=== PATIENT | female | born 1960 | race Caucasian/White ===

== ENCOUNTER 2016-09-12 04:12 | Observation (INO) ==
[2016-09-12 04:56] LABS: MANUAL DIFF NEEDED? NO
[2016-09-12 05:01] LABS: BASO% 0.1 % (0.0-0.8); HEMATOCRIT 41.1 % (37.0-47.0); LYMPH# 0.71 X1000 (1.2-3.4); LYMPH% 10.4 % (20.5-51.1); MCH 32.3 PG (27-31); MCHC 34.1 g/dL (33-37); MCV 94.7 FL (81-99); MONO# 0.48 X1000 (0.11-0.59); MPV 9.4 FL (7.4-10.4); NEUT% 82.5 % (42.2-75.2); PLT 158 X1000 (130-400); RBC 4.34 XMIL (4.2-5.4)
[2016-09-12 05:17] LABS: ALBUMIN 4.2 g/dL (3.5-5.0); CALCIUM 8.9 mg/dL (8.8-10.2); POTASSIUM 3.8 mmol/L (3.5-5.1); TOTAL BILIRUBIN 0.38 mg/dL (0.20-1.00); TOTAL PROTEIN 7.1 g/dL (6.3-8.3)
[2016-09-12] MEDS ORDERED: NS 1,000 ML IV ONE (06:47)
--- NOTE | 2016-09-12 07:17 | PROVIDER DOCUMENTATION ---
HPI-General Adult - General Chief Complaint: Flu Symptoms Stated Complaint: FEVER/SEIZURES/PASSED OUT Time Seen by Provider: 09/12/16 06:30 Source: patient, family Allergies/Adverse Reactions: Patient Allergies Allergy/AdvReac Type Severity Reaction Status Date / Time codeine Allergy RASH Verified 09/12/16 04:34 Home Medications: Home Medication List Medication Instructions Recorded Confirmed Last Taken Type Venlafaxine [Effexor] 75 mg PO DAILY 09/12/16 09/12/16 09/11/16 History - History of Present Illness -Gen Adult Nature of Presenting Problems: 55 yo WF vacationed in the [place] the past two weeks and was not ill there. She arrived home yesterday, became ill last night with severe myalgias, diarrhea, fever and diaphoresis. She became weak and did have a brief seizure prior to coming to the hospital. Location of Pain/Injury: reports: generalized Pain Radiation: reports: no radiation Quality of Pain: reports: aching Severity: reports: moderate Onset/Duration: reports: abrupt, 24 hours ago Timing: reports: still present Context/Activities at Onset: reports: light activity, out of country travel Modifying Factors: improves with: nothing Associated Symptoms: reports: diaphoresis, dizziness, fever/chills, muscle aches Similar Symptoms Previously?: No Recently seen or treated by another doctor?: No Review of Systems - Adult - REVIEW OF SYSTEMS - ADULT Constitutional: reports: see HPI Eyes: reports: no symptoms reported Ears, Nose, Mouth & Throat: reports: no symptoms reported Cardiovascular: reports: syncope Respiratory: reports: no symptoms reported Gastrointestinal: reports: no symptoms reported Genitourinary: reports: no symptoms reported Musculoskeletal: reports: no symptoms reported Integumentary: reports: no symptoms reported Neurological: reports: seizure Psychiatric: reports: no symptoms reported Endocrine: reports: no symptoms reported Hematologic/Lymphatic: reports: no symptoms reported Allergic/Immunologic: reports: no symptoms reported All Other Systems: Reviewed and Negative Past History - Adult - PAST MEDICAL HISTORY-ADULT Review of Records: reports: Old Records Reviewed, Nursing Assessment Review, Medications Reviewed Major Childhood Illnesses: reports: denies history Cardiovascular: reports: denies history Respiratory: reports: denies history Gastrointestinal: reports: denies history Genitourinary: reports: denies history Neurological: reports: Seizures/Epilepsy (at age 20. Not on anticoagulant therapy) Psychiatric: reports: denies history Physical Exam-General - PHYSICAL EXAM-ADULT Initial Vital Signs Reviewed: Yes (BP 80/40 when I examied her - 104/60 in triage) - CONSTITUTIONAL General Appearance: moderate distress, anxious - EYES Eyes: PERRL/EOMI, pink conjunctivae - HEAD, EARS, NOSE, MOUTH & THROAT HENMT: normocephalic/atraumatic, normal ENT inspection - NECK Neck: non-tender, full range of motion, supple. negative: lymphadenopathy - RESPIRATORY Respiratory: chest non-tender, lungs clear, normal breath sounds, no pleuratic chest pain, no respiratory distress - CARDIOVASCULAR Cardiovascular: normal peripheral pulses, regular rate, rhythm, no edema - GASTROINTESTINAL (ABDOMEN) Abdominal Exam: normal bowel sounds, non tender, soft, no organomegaly - LYMPHATIC Lymphatic: no adenopathy - MUSCULOSKELETAL Back Exam: normal inspection Extremity: normal range of motion, no pedal edema. negative: erythema, joint effusion - SKIN Integumentary: negative: petechiae - NEUROLOGIC Neurologic: grossly normal - PSYCHIATRIC Psych/Mental Status: normal mood/affect Progress - PLAN OF CARE/RESULTS Progress/Plan/Lab Results: Vital Signs - 8 hr 09/12/16 04:17 09/12/16 06:50 Temperature 97.6 F Pulse Rate 80 72 Respiratory Rate 18 12 Blood Pressure 105/61 96/69 O2 Sat by Pulse Oximetry 100 100 09/12/16 04:53 Influenza Screen - Final Nasopharyngeal Laboratory Results - last 24 hr 09/12/16 09/12/16 04:35 04:35 WBC 6.83 RBC 4.34 Hgb 14.0 Hct 41.1 MCV 94.7 MCH 32.3 H MCHC 34.1 RDW Std Deviation 12.3 Plt Count 158 MPV 9.4 Immature Gran % (Auto) 0.0 Neut % (Auto) 82.5 H Lymph % (Auto) 10.4 L Miner % (Auto) 7.0 Eos % (Auto) 0.0 Baso % (Auto) 0.1 Immature Gran # (Auto) 0.00 Neut # (Auto) 5.63 Lymph # (Auto) 0.71 L Miner # (Auto) 0.48 Eos # (Auto) 0.00 Baso # (Auto) 0.01 Sodium 135 L Potassium 3.8 Chloride 96 L Carbon Dioxide 23 L Anion Gap 16 BUN 14 Creatinine 1.2 H Estimated GFR/1.73 m2 47 BUN/Creatinine Ratio 12 Glucose 128 H Calculated Osmolality 272 Calcium 8.9 Total Bilirubin 0.38 AST 20 ALT 12 Alkaline Phosphatase 62 Total Protein 7.1 Albumin 4.2 Globulin 2.9 Albumin/Globulin Ratio 1.4 Amylase 29 Lipase 24 Orders Category Date Time Status cxr [CHEST-2 VIEWS] [RAD] Stat Exams 09/12/16 04:48 Taken AMYLASE [CHEM] Stat Lab 09/12/16 04:35 Completed CBC WITH ELECTRONIC DIFF [HEME] Stat Lab 09/12/16 04:35 Completed COMPREHENSIVE METABOLIC PANEL [CHEM] Stat Lab 09/12/16 04:35 Completed INFLUENZA SCREEN A/B Stat Lab 09/12/16 04:53 Completed LIPASE [CHEM] Stat Lab 09/12/16 04:35 Completed UA NIMS W/REFLEX CULT [URINALYSIS] Stat Lab 09/12/16 07:10 Uncollected 0.9% Sodium Chloride Inj [Ns] 1,000 ml Med 09/12/16 06:47 Active IV 999 mls/hr Result Diagrams: 09/12/16 04:35 09/12/16 04:35 - CONSULTS/PCP/HOSPITALIST Notification #1 *Consult/PCP/Hospitalist*: spoke with Dr childs who recommends admission, cultures and Rx with doxy/Ro - CHANGE OF SHIFT REPORT (ED Provider) Report Given and Care Transferred to:: Dr Pedro Items Pending: Other (IV fluids and possibly ID consult with Dr Childs) Departure - Departure Date of Disposition Decision: 09/12/16 Time of Disposition Decision: 07:44 DIAGNOSIS: Acute febrile illness Disposition: ADMITTED INPATIENT 09 Certified Medical Emergency: Emergent Condition: Fair Referrals and Follow-Ups: None,PCP [Primary Care Provider] - - Critical Care Note This patient required my direct & personal management of CC.: No
--- NOTE | 2016-09-12 07:39 | Diag Imaging Result Doc PS360 ---
CHEST-2 VIEWS - 09/12/2016 INDICATION: flu like sx TECHNIQUE: COMPARISON: None FINDINGS: The lungs are normally expanded and clear. Heart size and mediastinal contours are normal. No pneumothorax or pleural effusion. IMPRESSION: Negative exam. Electronically signed by Aaron Partida 09/12/2016 7:36 AM
[2016-09-12] MEDS ORDERED: ROCEPHIN 2 GM/NS 2 GM/50 ML IVPB IV ONE (07:47)
[2016-09-12] MEDS ORDERED: DOXYCYCLINE 100 MG in NS 250 ML IV ONE (08:00)
--- NOTE | 2016-09-12 08:58 | HISTORY AND PHYSICAL ---
HISTORY OF PRESENT ILLNESS: The patient is a 55-year-old who presented to the emergency room. Her primary care doctor, I believe, works in [place]. She had been to the [facility], I think, last week, on vacation, stated her developed what looked like a viral gastroenteritis, got over it after a couple of days, and then she started on Friday having a scratchy throat and general malaise and low-grade fever, although she did have a fever yesterday that got up to 102. She states she is burning in her chest when she breathes and developed diarrhea. She has not eaten or drank much. She went to go to the bathroom and she passed out, so a short-lived syncopal episode, but she did have incontinence of bowel and bladder, and there was some tonic-clonic activity in her extremities. was concerned she had a seizure. She came to, got her back to bed, able to get her to the emergency room. She states her throat feels better, and she overall feels a little better but still burning in her chest. PAST MEDICAL HISTORY: Pretty unremarkable. She has had a cholecystectomy, tubes tied. Not much else in the way of medical history. FAMILY HISTORY: Mother, she stated, had a lot of health problems. SOCIAL HISTORY: . Negative for alcohol or tobacco. No illicit drugs. REVIEW OF SYSTEMS: General: In general, she has just felt bad in the last couple of days. HEENT: Unremarkable. No real change in vision. Respiratory: She has been coughing. She has some burning in her chest. GI/: No gross hematuria or dysuria, but she is having diarrhea or loose stools. She has not eaten or drank much in the last several days since Friday, really. Cardiovascular: No pressure-type pain and no palpations reported. IMAGING: Chest x-ray was negative. PHYSICAL EXAMINATION: GENERAL: Well-developed, well-nourished white female. HEENT: Pupils are equal and reactive. CVP was less than 6 cm. Mucous membranes dry. VITAL SIGNS: Pulse 80, respirations 15, blood pressure 97/66. Weight 123 pounds, height 5 feet. LUNGS: Clear in all lung wayne. CARDIOVASCULAR: Regular rate and rhythm without murmur or S3. ABDOMEN: Soft, no guarding, positive bowel sounds. EXTREMITIES: Without clubbing, cyanosis, or edema. SKIN: Warm and dry. No rashes appreciated. LYMPHATICS: I did not appreciate any adenopathy, cervical, supraclavicular, no femoral adenopathy. LAB: White count 6830, hematocrit 41, platelet count 158,000. Sodium 135, potassium 3.8, chloride 96, bicarb 23, BUN 14, creatinine 1.2. Liver functions/transaminases: AST was 20, ALT 12, alkaline phosphatase 52. Albumin 4.2. Note lymphocyte count was low. ASSESSMENT AND PLAN: I suspect she has got a viral gastroenteritis as she has been in [facility]. Dr. Salvador has been notified in consult. We will cover for other most likely organisms including Zika virus and dengue and leptospirosis. Will put her on tetracycline and Rocephin, given her IV fluids, normal saline at 125 mL/h. Will put her on a full liquid diet today. cc: Glen Brannon MD
[2016-09-12] MEDS ORDERED: ZOFRAN IV PRN (09:18)
[2016-09-12] MEDS ORDERED: TYLENOL PO PRN (09:18)
[2016-09-12 09:56] LABS: URINE CULTURE NEEDED? NO; URINE MICRO REVIEW NEEDED? NO; URINE SOURCE CLEAN CATCH
[2016-09-12 10:01] LABS: BILIRUBIN URINE NEGATIVE (NEGATIVE); BLOOD URINE NEGATIVE (NEGATIVE); COLOR YELLOW; GLUCOSE URINE NEGATIVE (NEGATIVE); LEUKOCYTES URINE NEGATIVE (NEGATIVE); NITRITE URINE NEGATIVE (NEGATIVE); PROTEIN URINE TRACE mg/dL (NEGATIVE); SP GRAVITY URINE 1.007; TURBIDITY URINE CLEAR (CLEAR); UROBILINOGEN URINE NORMAL (NORMAL)
[2016-09-12 10:02] LABS: UR EPITHELIAL CELLS <10 /HPF (<10); URINE BACTERIA NEGATIVE /HPF; URINE RBC <10 /HPF (<10); URINE WBC <10 /HPF (<10)
[2016-09-12] MEDS: EFFEXOR PO SCH (10:17)
[2016-09-12] MEDS: PRILOSEC PO SCH (10:17)
[2016-09-12] MEDS: NS 1,000 ML IV SCH ×2 (10:19→21:48)
--- NOTE | 2016-09-12 12:24 | CONSULTATION ---
DATE OF CONSULTATION: 09/12/2016 CONCLUSION: The patient recently was in the [facility]. She, on the day of returning, developed an illness manifested by fever, diarrhea, chest congestion, and generalized aching. I suspect that the patient got her in illness while she was in the [facility]. She did not follow the usual health recommendations that are made for travelers to foreign countries. She did drink bottled water, but she did not check to see where it was bottled. She did eat fruit and salads, and did not stick to just food that was thoroughly cooked and served hot. Her also became ill, but got better within a day. RECOMMENDATIONS: I would suggest sending cultures of the blood and the stool, and I would suggest starting the patient on a combination of Rocephin and doxycycline. DISCUSSION: The patient, approximately 4-5 days ago, on returning from her trip, developed chest congestion, sore throat, fever, generalized aching, and diarrhea. Her laboratory studies thus far show a CBC with a white count of 6830, hemoglobin 14, platelet count 158,000. Creatinine is 1.2. The GFR is 47. Swab for influenza is negative. Blood and stool cultures are pending. Chest x- ray shows clear lung wayne. PAST MEDICAL HISTORY AND REVIEW OF SYSTEMS: Eyes and Ears: She does not have any loss of vision or hearing. Neck: No stiffness. Cardiac: No chest pain or palpitations. Respiratory: See above for chest congestion. Gastrointestinal: See above for diarrhea. Endocrine: Patient does not have diabetes or thyroid disease. Bones, Joints, Muscles: The patient was aching all over. She did not notice any swelling of her joints. Integument: No rashes. Neurologic: The patient became very lightheaded and almost passed out, but I think this was due to dehydration from her present illness rather than a neurologic event such as epilepsy. The remainder of the patient's review of systems was completed and was negative. OBSTETRICAL AND GYNECOLOGIC HISTORY: She has never been . She has had a tubal ligation. She stopped having her menstrual periods approximately 3 years ago. PREVIOUS HOSPITALIZATIONS AND OPERATIONS: She has had a cholecystectomy and tubal ligation. MEDICAL DISEASES: Positive for depression. Negative for diabetes or seizures. INFECTIOUS DISEASE HISTORY: Positive for UTI. Negative for pneumonia. FAMILY HISTORY: Positive for diabetes mellitus, hypertension, myocardial infarction, and cancer. SOCIAL HISTORY: [place] She does not smoke cigarettes. She does not abuse drugs. She rarely drinks alcoholic beverages. She is . She does not have any pets at home. 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 ALLERGIES: She is allergic to codeine. MEDICATIONS: The only medicine she takes at home is Effexor. PHYSICAL EXAMINATION: Vital Signs: The patient's temperature is 98.7 degrees, pulse 79, respirations 19, blood pressure is 98/61. Patient weighs 127 pounds. General: This is a healthy- appearing, middle-aged female who is in no acute distress. Head, Eyes, Ears, Nose, and Throat: Her tongue was dry. She can hear my spoken words and see near objects. No drainage noted from the nose or ears. Neck: No meningismus. Thorax: No increased chest AP diameter. Lungs: A few rales were heard in the left base. Otherwise, the chest was clear. Cardiovascular: Heart rate was regular. Peripheral pulses are palpable. Abdomen and Flanks: Soft and nontender. Integument: No rash. Neurologic: Patient is alert. She can move her extremities. There is no tremor. Her sensation is intact to touch. Her memory, as regarding her medical history, was intact. Thank you for the consult. cc: Kehinde Salvador MD
[2016-09-12] MEDS ORDERED: ALLEGRA D PO PRN (19:57)
[2016-09-12] MEDS: DOXYCYCLINE 100 MG in NS 250 ML IV SCH (21:48)
--- NOTE | 2016-09-13 06:12 | EKG Report ---
Test Performed on : 09/13/2016 05:15:54 AM Test Reason : chest pain Blood Pressure : / mmHG Vent. Rate : 076 BPM Atrial Rate : 076 BPM P-R Int : 138 ms QRS Dur : 082 ms QT Int : 388 ms P-R-T Axes : 047 073 042 degrees QTc Int : 436 ms Normal sinus rhythm. Normal ECG No previous ECGs available Confirmed by Gee Davey MD ([id number]) on 09/13/2016 1:02:37 PM
[2016-09-13 06:26] LABS: MANUAL DIFF NEEDED? NO
[2016-09-13 06:32] LABS: BASO% 0.5 % (0.0-0.8); HEMATOCRIT 32.9 % (37.0-47.0); LYMPH% 48.1 % (20.5-51.1); MCH 32.2 PG (27-31); MCHC 33.4 g/dL (33-37); MCV 96.2 FL (81-99); MONO% 9.6 % (1.7-9.3); MPV 9.2 FL (7.4-10.4); NEUT% 41.8 % (42.2-75.2); PLT 111 X1000 (130-400); RBC 3.42 XMIL (4.2-5.4)
[2016-09-13] MEDS: PRILOSEC PO SCH (06:37)
[2016-09-13 06:45] LABS: INR 1.02; PROTIME 10.7 Seconds (9.2-11.7); PTT 34.1 Seconds (22.0-36.0)
[2016-09-13 07:01] LABS: AGAP 9; ALBUMIN 3.1 g/dL (3.5-5.0); ALKALINE PHOSPHATASE 41 U/L (32-104); BUN 6 mg/dL (8-22); CALCIUM 7.8 mg/dL (8.8-10.2); CHLORIDE 110 mmol/L (98-107); COSMO 280; GOT 20 U/L (10-30); GPT 10 U/L (10-36); MAGNESIUM 1.8 mg/dL (1.5-2.7); POTASSIUM 3.9 mmol/L (3.5-5.1); SODIUM 142 mmol/L (136-145); TCO2 23 mmol/L (25-35); TOTAL BILIRUBIN 0.15 mg/dL (0.20-1.00); TOTAL PROTEIN 5.3 g/dL (6.3-8.3)
[2016-09-13 07:09] LABS: FREE T4 1.06 ng/dL (0.93-1.70)
[2016-09-13] MEDS: NS 1,000 ML IV SCH (08:07)
[2016-09-13] MEDS ORDERED: ROCEPHIN 2 GM/NS 2 GM/50 ML IVPB IV SCH (09:00)
[2016-09-13 09:19] VITALS: BP 103/65
[2016-09-13] MEDS: EFFEXOR PO SCH (09:31)
[2016-09-13] MEDS: LOVENOX SUBQ SCH ×2 (09:31→09:35)
[2016-09-13] MEDS: DOXYCYCLINE 100 MG in NS 250 ML IV SCH (10:51)
--- NOTE | 2016-09-13 15:09 | DISCHARGE SUMMARY ---
ADMISSION DATE: 09/12/2016 DISCHARGE DATE: 09/13/2016 This 55-year-old presented to the emergency room. She works in [email or web address]. She had been in the [facility] last week. had developed what appeared to be a viral gastroenteritis for the last couple of days and he got better, with some nausea and diarrhea, and then she developed throat irritation, followed by diarrhea and nausea lasting several days. Did not take much food or water, and appeared to be dehydrated and volume contracted when she came in. Persistent malaise and nausea, and they were concerned about some more aggressive virus. Dr. Salvador saw her yesterday. As they were returning from the [facility], she manifested fever, diarrhea, chest congestion, and generalized aching, suspected the patient got a viral illness. She did not follow the usual health recommendations. She did drink bottled water, but she did not check to see where it was bottled. She did eat fruits and salads, did not stick to just food that was cooked and served by her , who also became ill. Patient is much better, feeling much better and requesting to go home, so I will discharge her home. Have her just stick to soup and easy food for the next couple of days and advance her diet gradually. Continue her Effexor 75 mg a day. cc: Glen Brannon MD
== END 2016-09-13 14:58 | disposition home or self-care (01) ==
LOC: ED 04:12 → 3N 09:02 → INTOOBSV 09:02
PROVIDERS: ATTEND Emergency Medicine